=== PATIENT | female | born 1975 | race African-American/Black ===

== ENCOUNTER 2017-01-05 21:39 | Emergency (ER) | payer SELFPAY ==
[~2017-01-05] VITALS: Ht 167.6 cm; Wt 161.4 kg
[~2017-01-05 21:39] MED LIST: AMLO10TA4 PO; ATEN100T PO; BENA40TA66 PO; GABA300S PO; GLIP5TAB12 PO; HYDR25TA PO; METF10002 PO
[2017-01-05] MEDS ORDERED: IPRATROPIUM BROMIDE (0.02%) 0.5MG/2.5ML NEB HHN STA (23:15)
[2017-01-05] MEDS ORDERED: ALBUTEROL (0.083%) 2.5MG/3ML NEB HHN STA (23:15)
[2017-01-06] MEDS ORDERED: IBUPROFEN 600MG TABLET PO ONE (02:15)
[2017-01-06 02:58] VITALS: BP 163/98
== END 2017-01-06 03:50 | disposition home or self-care (01) ==
LOC: ER 22:36
DX: J06.9 Acute upper respiratory infection, unspecified (principal); R11.2 Nausea with vomiting, unspecified; R10.9 Unspecified abdominal pain; R07.9 Chest pain, unspecified; R09.81 Nasal congestion; Z88.1 Allergy status to other antibiotic agents
CPT/HCPCS: 93005; 94640; 99283; J7611; Z7610